=== PATIENT | female | born 1960 | race American Indian/Alaskan Native ===

== ENCOUNTER 2019-11-13 23:11 | Emergency (ER) | payer MEDICAID, OTHER, SELFPAY ==
[2019-11-13 23:14] VITALS: BP 128/80; PULSE 88; PULSE 89; RESP 16; RESP 18; TEMP 36.1; TEMP 36.8; O2SAT 96; O2SAT 97; BMI 35.9
[2019-11-13] MEDS: TET,DIPH,PERTUSS(ACELL),VAC/PF 0.5 ML SYRINGE IM (23:26)
--- NOTE | 2019-11-14 00:51 | ED.WOUNDLAC ---
HPI - Wound/Laceration General Chief Complaint: Wound/Laceration Stated Complaint: GLF LAC R FA Time Seen by Provider: 11/14/19 00:51 Source: patient Mode of arrival: Ambulatory Limitations: no limitations History of Present Illness HPI narrative: Prior to arrival here the patient was walking out of her bedroom. She was wearing slippers. She reports slipping on the floor. She fell against the edge of the door awake, sustaining a laceration on the right forearm. She did not fall the floor. There was no head, neck or torso injuries. She has full range of motion of the right shoulder, right elbow and the right wrist. There is no active bleeding at the site. She is right-hand dominant, her last tetanus is unknown. She is on no meds for chronic illness. She denies recent illness. She has had no fever, or dyspnea. Related Data Home Medications Medication Instructions Recorded Confirmed acetaminophen [Tylenol Extra #0 09/18/12 Strength] Allergies Allergy/AdvReac Type Severity Reaction Status Date / Time ibuprofen [IBUPROFEN] Allergy Mild RASH Unverified 09/25/17 12:56 amoxicillin Allergy Verified 11/13/19 23:14 Penicillins Allergy Verified 11/13/19 23:14 Review of Systems Review of Systems ROS Unobtainable: All systems reviewed & are unremarkable except as noted in HPI and below Constitutional Constitutional: Denies chills, Denies fever(s), Denies lethargy and Denies weakness Musculoskeletal Musculoskeletal: Denies numbness Comments: Right forearm injuries noted HPI Integumentary/Breasts Skin/Breast: Denies rash Comments: No chronic skin problems Neurologic Neurologic: Denies numbness and Denies weakness Psychiatric Psychiatric: Denies anxiety and Denies depression Patient History Social History Smoking Status: Never smoker Smoking Status: Never smoker alcohol intake frequency: holidays/special occasions only Substance Use Type: marijuana Exam Initial Vital Signs Initial Vital Signs: Vital Signs Temperature 98.2 F 11/13/19 23:14 Pulse Rate 89 11/13/19 23:14 Respiratory Rate 18 11/13/19 23:14 Blood Pressure 128/80 11/13/19 23:14 Pulse Oximetry 96 11/13/19 23:14 Const General: cooperative and well developed Nutritional Appearance: well nourished Skin General: no rashes or lesions noted Other: 3 cm serpentine laceration to the mid right ulnar forearm. Skin is retracted from the injury, subcu tissues visualized. There is no bony injury obvious. There are no foreign bodies. The wound is clean. Neuro General: alert, oriented x3 and gait normal Speech: speech normal Other: Specifically, motor and sensory exam of the right arm normal. Extrem General: full ROM, no clubbing, cyanosis or edema, no pedal edema and no calf tenderness Other: Right arm laceration as noted above. Full range of motion right shoulder, the right elbow or right wrist. The right arm is neurovascularly intact. Psych Appearance: well kempt Mental Status: mental status grossly normal Attitude: cooperative Thought Content: normal Judgment: judgment good Procedures Laceration Repair Laceration 1: Site: upper extremity Side (If applicable): right (Mid forearm.) Size (cm): 3 Description: irregular and clean Depth: simple, single layer Local Anesthetic: lidocaine 1% Amount of anesthesia used (mL): 2 Pre-repair: wound explored, irrigated extensively and deep structures intact Skin layer closed with: nylon Size (cm): 5-0 Number of sutures: 7 Technique: simple, interrupted Course Course Course Narrative: The patient's tetanus was updated while here in the ER. After closure of the wound, the wound was cleansed and bandaged by the patient's nurse. Orders Ordered: Discontinued Medications Diphtheria/Tetanus/Acell Pertussis (Adacel) 0.5 ml IM .ONCE ONE Stop: 11/13/19 23:19 Last Admin: 11/13/19 23:26 Dose: 0.5 ml Documented by: NATALIA Lidocaine/Sodium Bicarbonate (Buffered Lidocaine 10 Ml Syr) 10 ml INJ NOW ONE Stop: 11/14/19 01:09 Last Admin: 11/14/19 01:33 Dose: 10 ml Documented by: STACEY Vital Signs Vital signs: Vital Signs - 8 hr 11/13/19 23:14 Temperature 96.9 F L Pulse Rate 88 Respiratory Rate 16 Blood Pressure 128/80 Blood Pressure [Left Arm] 128/80 Pulse Oximetry 97 Discharge Plan Departure Patient Disposition: Home Clinical Impression: Laceration of forearm, right Qualifiers: Encounter type: initial encounter Qualified Code(s): S51.811A - Laceration without foreign body of right forearm, initial encounter Instructions: DI for Laceration Repair Activity Restrictions/Additional Instructions: Keep the bandage in place for 1 day. After the bandages off, you may shower, and clean the site. While resting or in your home, the bandage may be off. If working or at about cover the laceration. Follow-up with your doctor in 10 days for suture removal, return to the ER if necessary. Prescriptions: No Action acetaminophen [Tylenol Extra Strength] 500 MG tablet Qty: 0 RF: 0 Referrals: Maureen Jones MD [Primary Care Provider] -
[2019-11-14] MEDS: LIDO 1%/SOD BICARB 8.4% (10ML) 10 ML SYRINGE INJ (01:33)
[2019-11-14 02:15] VITALS: BP 142/67; PULSE 88; RESP 16; O2SAT 97
== END 2019-11-14 02:35 | disposition home or self-care (01) ==
PROVIDERS: Emergency Provider Emergency Medicine; PCP Family Medicine
DX: S51.811A Laceration without foreign body of right forearm, initial encounter (principal); W19.XXXA Unspecified fall, initial encounter; Z23 Encounter for immunization
CPT/HCPCS: 12002; 90471; 99283; 99284; 90715